=== PATIENT | female | born 1990 | race Caucasian/White ===

== ENCOUNTER → 2023-05-03 15:44 | Outpatient (CLI) | payer OTHER, SELFPAY | PROVIDERS: Visit Provider Nurse Practitioner Family | DX: N89.8 Other specified noninflammatory disorders of vagina (principal); R30.0 Dysuria | CPT/HCPCS: 87086; 87210 ==

== ENCOUNTER → 2023-09-06 07:52 | Outpatient (CLI) | payer OTHER, SELFPAY ==
[2023-09-06 09:03] LABS: Add Manual Diff / Slide Review NO; Basophils Absolute Auto 0 /uL (0-100); Basophils Percent Auto 0.7 % (0-2); Eosinophils Absolute Auto 200 /uL (0-450); Eosinophils Percent Auto 3.9 % (2-4); Hematocrit 36.7 % (36-46); Hemoglobin 12.4 g/dL (12.0-16.0); Lymphocytes Absolute Auto 1900 /uL (1100-4500); Lymphocytes Percent Auto 37.3 % (25-40); Mean Corpuscular HGB Conc 33.8 % (30-36); Mean Corpuscular Hemoglobin 31.9 PG (26-34); Mean Corpuscular Volume 94.5 fL (80-100); Monocytes Absolute Auto 500 /uL (0-900); Monocytes Percent Auto 9.5 % (3-14); Neutrophils Absolute Auto 2500 /uL (1500-7000); Neutrophils Percent Auto 48.6 % (50-75); Platelet Count 258 X10^3/uL (150-400); Red Blood Cell Count 3.89 X10^6/uL (4.0-5.2); Red Cell Distribution Width 13.4 % (11.6-14.8); White Blood Cell Count 5.2 X10^3/uL (4.5-11.0)
[2023-09-06 09:12] LABS: Hemoglobin A1C% w Est Avg Glu 5.5 % (4.0-6.0)
[2023-09-06 09:54] LABS: Alanine Aminotransferase 14 IU/L (<35); Albumin 4.4 g/dL (3.5-5.0); Albumin Globulin Ratio 1.3 (1.0-2.8); Alkaline Phosphatase 54 U/L (38-126); Aspartate Aminotransferase 24 IU/L (14-36); BUN Creatinine Ratio 18.7 (6-22); Bilirubin Total 0.6 mg/dL (0.2-1.3); Blood Urea Nitrogen 14 mg/dL (7-17); Calcium 9.2 mg/dL (8.4-10.2); Carbon Dioxide 28 mmol/L (22-32); Chloride 101 mmol/L (98-107); Estimated Glomerular Filt Rate > 60 mL/min (>60); Globulin 3.4 g/dL (1.7-4.1); Glucose 112 mg/dL (70-100); HEMOLYSIS < 15 (0-50); Potassium 4.1 mmol/L (3.4-5.1); Sodium 137 mmol/L (137-145); Total Protein 7.8 g/dL (6.3-8.2)
[2023-09-06 10:12] LABS: Free T3, Triiodothyronine Free 3.63 pg/mL (2.77-5.27); Free T4, Direct Thyroxine 0.79 ng/dL (0.78-2.19)
[2023-09-06 10:25] LABS: Thyroid Stimulating Hormone 1.76 uIU/mL (0.47-4.68)
[2023-09-06 17:25] LABS: HIV 1 & 2 Ab/Ag 4th Gen Combo NEGATIVE (NEGATIVE); Hep C Virus Ab w/Reflex Quant NEGATIVE s/c (NEGATIVE)
[2023-09-07 22:54] LABS: Thyroid Peroxidase Antibodies 457 IU/mL (0-34)
== END ==
PROVIDERS: PCP Family Medicine; Referring Provider Family Medicine; Visit Provider Family Medicine
DX: R76.8 Other specified abnormal immunological findings in serum (principal); R55 Syncope and collapse; Z13.29 Encounter for screening for other suspected endocrine disorder; R53.83 Other fatigue
CPT/HCPCS: 36415; 80053; 83036; 84439; 84443; 84481; 85025; 86376; 86803; 87389

== ENCOUNTER → 2023-11-29 15:55 | Outpatient (CLI) | payer OTHER, SELFPAY | PROVIDERS: PCP Family Medicine; Referring Provider Family Medicine; Visit Provider Family Medicine | DX: R55 Syncope and collapse (principal); R07.89 Other chest pain | CPT/HCPCS: 93005 ==

== ENCOUNTER → 2023-12-12 07:55 | Outpatient (CLI) | payer OTHER, SELFPAY | LOC: CAR 07:56 | PROVIDERS: PCP Family Medicine; Referring Provider Family Medicine; Visit Provider Family Medicine | DX: R07.9 Chest pain, unspecified (principal); R06.02 Shortness of breath; R42 Dizziness and giddiness | CPT/HCPCS: 93246 ==

== ENCOUNTER 2024-01-19 12:02 | Emergency (ER) | payer OTHER, SELFPAY ==
[2024-01-19 12:07] VITALS: BP 116/65; PULSE 74; RESP 16; TEMP 37.2; O2SAT 100; BMI 22.6
--- NOTE | 2024-01-19 12:19 | DI.US.S_ITS ---
PROCEDURE: US PELVIC COMPLETE INDICATIONS: POSITIVE HCG; PAIN TECHNIQUE: Real-time scanning was performed of the pelvic organs, with image documentation. Additional endovaginal scanning was necessary due to incomplete visualization of the adnexal and endometrial structures by transabdominal scanning. COMPARISON: None. FINDINGS: Uterus: Uterus is anteverted and normal in size at 7.8 x 3.6 x 4.7 cm. The myometrium is homogeneous. The endometrium measures 8.5 mm combined thickness. No evidence of intrauterine . Ovaries: The right ovary measures 3.9 x 3.3 x 32.2 cm, with a calculated ovarian volume of 14.5 mL. There is a complex avascular cyst measuring 1.9 x 2.6 x 1.4 cm. The left ovary measures 1.5 x 1.9 x 1.5 cm, with a calculated ovarian volume of 2.1 cc. Less than 12 follicles can be seen in each ovary. Immediate adjacent to the left ovary there is a 4.4 x 3.3 x 2.7 cm solid heterogeneous mass. No vascularity is identified. Other: 28 cc free fluid in the pelvis with internal echogenicities. IMPRESSION: No intrauterine . Left adnexal heterogeneous avascular mass combined with pelvic free-fluid raises concern for ectopic . Dr. Pham call discussed the above findings with Dr. Joseph at 12:55 p.m. [place] time We strive to produce accurate, complete, and clear reports of imaging services. To assist us in improving patient care, this report was composed using standard report templates and voice recognition software. Therefore, it may contain abnormal punctuation, insertions and/or omissions. Occasional wrong-word or sound-alike substitutions may occur. Though we review the report and make efforts to correct it, we do recommend that the report be read carefully in proper context to recognize any text inaccuracies. Dictated by: Abdi Pham M.D. on 01/19/2024 at 12:47 Approved by: Abdi Pham M.D. on 01/19/2024 at 12:56
--- NOTE | 2024-01-19 12:28 | PC.NURSE ---
SENIOR RECRUITMENT CONSULTANT Note: US Records requested from [facility] @ 1225
--- NOTE | 2024-01-19 12:48 | ED.PREGNANCY ---
HPI - General Chief complaint: OB/Uterine Contractions Stated complaint: abnormal labwork Time Seen by Provider: 01/19/24 12:19 Source: patient Mode of arrival: Ambulatory History of Present Illness HPI Narrative: 33-year-old female at approximately 5wks gestation presents for repeat laboratory work. Patient states that she was in the process of weaning her child and does not have normal menstrual periods. She had a positive home test at the beginning of this month. She was seen at an outside OBGYN clinic where her HCG was monitored, and appeared to decrease from 558 to 543. Patient states that on she had an ultrasound at the outside clinic that showed no IUP but a mass seen by the left ovary. Ectopic could not be ruled out and they recommended close follow up. Patient reports persistent deep left-sided pain that is worse when she is anup. States that she still has some residual pinkish tinge when she wipes but no dark bleeding. She was blood type A positive from previous pregnancies. Related Data Previous Rx's Medication Instructions Recorded albuterol sulfate 90 mcg/actuation 2 puff inhalation Q6H PRN 11/29/23 aerosol inhaler shortness of breath or wheezing #6.7 grams Allergies Allergy/AdvReac Type Severity Reaction Status Date / Time clavulanic acid Allergy Mild Swelling Verified 01/19/24 12:07 [From Augmentin] of Lip/Tongue/Throat Sulfa (Sulfonamide AdvReac Mild Hives Verified 01/19/24 12:07 Antibiotics) Review of Systems Review of Systems Narrative: Negative except as noted above Exam Initial Vital Signs Initial Vital Signs: Vital Signs Temperature 98.9 F 01/19/24 12:07 Pulse Rate 74 01/19/24 12:07 Respiratory Rate 16 01/19/24 12:07 Blood Pressure 116/65 01/19/24 12:07 Pulse Oximetry 100 01/19/24 12:07 Oxygen Delivery Method Room Air 01/19/24 12:07 Const: Awake, alert, no acute distress, nontoxic appearing Cardiac: regular rate, regular rhythm RESP: unlabored, clear bilaterally, no wheezing GI: Soft, nontender, nondistended, no rebound, no guarding MSK: Atraumatic, full range of motion, pulses equal Skin: Warm, Dry, intact, no rashes Neuro: AO x3, CN II-XII grossly intact, moves all extremities Course Orders Ordered: ED Orders 01/19/24 12:19 US pelvic complete Stat 01/19/24 12:34 ABO RH Type Stat Complete Blood Count AUTO DIFF Stat Comprehensive Metabolic Panel Stat HCG Quantitative /Beta subunit Stat Vital Signs Vital signs: Vital Signs - 8 hr 01/19/24 12:07 01/19/24 13:19 01/19/24 13:30 Temperature 98.9 F Pulse Rate 74 71 70 Respiratory Rate 16 Blood Pressure 116/65 Pulse Oximetry 100 100 99 Oxygen Delivery Method Room Air Room Air 01/19/24 15:07 Temperature Pulse Rate 81 Respiratory Rate 16 Blood Pressure 109/71 Pulse Oximetry 99 Oxygen Delivery Method Room Air MDM - OB/Uterine Contractions Differential Diagnosis Differential diagnosis: Likely normal delivery at term, hemorrhage and -induced hypertension Lab Data 01/19/24 12:34 01/19/24 12:34 Labs: Lab Results 01/19/24 Range/Units 12:34 WBC 6.0 (4.5-11.0) X10^3/uL RBC 3.51 L (4.0-5.2) X10^6/uL Hgb 11.4 L (12.0-16.0) g/dL Hct 33.3 L (36-46) % MCV 94.9 (80-100) fL MCH 32.5 (26-34) PG MCHC 34.2 (30-36) % RDW 13.5 (11.6-14.8) % Plt Count 275 (150-400) X10^3/uL Neut % (Auto) 52.7 (50-75) % Lymph % (Auto) 34.7 (25-40) % [place] % (Auto) 9.7 (3-14) % Eos % (Auto) 2.1 (2-4) % Baso % (Auto) 0.8 (0-2) % Neut # (Auto) 3200 (8271-3596) /uL Lymph # (Auto) 2100 (9893-4623) /uL [place] # (Auto) 600 (0-900) /uL Eos # (Auto) 100 (0-450) /uL Baso # (Auto) 0 (0-100) /uL Sodium 138 (137-145) mmol/L Potassium 4.2 (3.4-5.1) mmol/L Chloride 106 (98-107) mmol/L Carbon Dioxide 29 (22-32) mmol/L BUN 9 (7-17) mg/dL Creatinine 0.55 (0.52-1.04) mg/dL Estimated GFR > 60 (>60) mL/min BUN/Creatinine Ratio 16.4 (6-22) Glucose 98 (70-100) mg/dL Calcium 9.0 (8.4-10.2) mg/dL Total Bilirubin 0.7 (0.2-1.3) mg/dL AST 22 (14-36) IU/L ALT 13 (<35) IU/L Alkaline Phosphatase 50 (38-126) U/L Total Protein 8.1 (6.3-8.2) g/dL Albumin 4.5 (3.5-5.0) g/dL Globulin 3.6 (1.7-4.1) g/dL Albumin/Globulin Ratio 1.3 (1.0-2.8) HCG, Quant 221.6 mIU/mL Blood Type A Positive Urine Dip Bedside Urine Glucose Negative Bedside Urine Bilirubin - Negative Bedside Urine Ketone - Negative Urine Specific [place] 1.010 Bedside Urine Occult Blood - Negative Bedside Urine pH 7.0 Bedside Urine Protein - Negative Bedside Urine Urobilinogen - Negative Bedside Urine Nitrite - Negative Bedside Urine Leukocytes - Negative Esterase Imaging Data US - [facility] [employer] TEACHER: Radiologist's Impression: PROCEDURE: US PELVIC COMPLETE INDICATIONS: POSITIVE HCG; PAIN TECHNIQUE: Real-time scanning was performed of the pelvic organs, with image documentation. Additional endovaginal scanning was necessary due to incomplete visualization of the adnexal and endometrial structures by transabdominal scanning. COMPARISON: None. FINDINGS: Uterus: Uterus is anteverted and normal in size at 7.8 x 3.6 x 4.7 cm. The myometrium is homogeneous. The endometrium measures 8.5 mm combined thickness. No evidence of intrauterine . Ovaries: The right ovary measures 3.9 x 3.3 x 32.2 cm, with a calculated ovarian volume of 14.5 mL. There is a complex avascular cyst measuring 1.9 x 2.6 x 1.4 cm. The left ovary measures 1.5 x 1.9 x 1.5 cm, with a calculated ovarian volume of 2.1 cc. Less than 12 follicles can be seen in each ovary. Immediate adjacent to the left ovary there is a 4.4 x 3.3 x 2.7 cm solid heterogeneous mass. No vascularity is identified. Other: 28 cc free fluid in the pelvis with internal echogenicities. IMPRESSION: No intrauterine . Left adnexal heterogeneous avascular mass combined with pelvic free-fluid raises concern for ectopic . Dr. Pham call discussed the above findings with Dr. Joseph at 12:55 p.m. [place] time We strive to produce accurate, complete, and clear reports of imaging services. To assist us in improving patient care, this report was composed using standard report templates and voice recognition software. Therefore, it may contain abnormal punctuation, insertions and/or omissions. Occasional wrong-word or sound-alike substitutions may occur. Though we review the report and make efforts to correct it, we do recommend that the report be read carefully in proper context to recognize any text inaccuracies. Dictated by: Abdi Pham M.D. on 01/19/2024 at 12:47 Approved by: Abdi Pham M.D. on 01/19/2024 at 12:56 MDM Narrative Medical decision making narrative: Well-appearing patient with abnormal laboratory work and abnormal outside imaging this concerning for ectopic . Abdomen soft, patient in no acute distress. Repeat hCG and imaging ordered here. HCG quant 221, decreased even further from previous value of 543. Patient was able to show the previous ultrasound report on her phone that showed a ?left-sided heterogenous mass with peripheral vascularity adjacent to the left ovary measuring 3.1 x 3.2 x 2.2 cm. A trace of anechoic fluid around the mass is seen?. Today ultrasound report shows that the mass adjacent to the left ovary is even larger in size with 28 cc of free fluid in the pelvis. Discussed lab and ultrasound findings with on-call OBGYN Dr. العراقي, who states that this is likely an ectopic in the process of resolving. Dr. العراقي assessed the patient in person. Since she is still she was not a candidate for methotrexate. Option to take patient to surgery versus watchful waiting discussed with patient. Patient discussed options with her and elected to go home with watchful waiting. She will follow up on Sunday with OBGYN. ED return precautions discussed at bedside. Patient expressed understanding of the plan and is in agreement at this time. All questions answered at the time of discharge. Discharge Plan Departure Patient Disposition: Home Clinical Impression: Ectopic Qualifiers: Location of ectopic : other location Intrauterine status: without intrauterine Qualified Code(s): O00.80 - Other ectopic without intrauterine Instructions: DI for Ectopic Activity Restrictions/Additional Instructions: After discussing with OBGYN you elected to follow watchful waiting. If you notice increasing abdominal pain, worsening bleeding, or any other concerning symptoms please come back to the emergency department. Otherwise follow up with OBGYN as previously discussed with Dr. اعلراقي Prescriptions: No Action albuterol sulfate 90 mcg/actuation HFA aerosol inhaler 2 puff inhalation Q6H PRN (Reason: shortness of breath or wheezing) Qty: 6.7 0RF Referrals: Jasvir Quiroz MD [Primary Care Provider] - Cynthia العراقي DO [Physician] - Stand Alone Forms: Patient Portal/API
[2024-01-19 13:01] LABS: Add Manual Diff / Slide Review NO; Basophils Absolute Auto 0 /uL (0-100); Basophils Percent Auto 0.8 % (0-2); Eosinophils Absolute Auto 100 /uL (0-450); Eosinophils Percent Auto 2.1 % (2-4); Hematocrit 33.3 % (36-46); Hemoglobin 11.4 g/dL (12.0-16.0); Lymphocytes Absolute Auto 2100 /uL (1100-4500); Lymphocytes Percent Auto 34.7 % (25-40); Mean Corpuscular HGB Conc 34.2 % (30-36); Mean Corpuscular Hemoglobin 32.5 PG (26-34); Mean Corpuscular Volume 94.9 fL (80-100); Monocytes Absolute Auto 600 /uL (0-900); Monocytes Percent Auto 9.7 % (3-14); Neutrophils Absolute Auto 3200 /uL (1500-7000); Neutrophils Percent Auto 52.7 % (50-75); Platelet Count 275 X10^3/uL (150-400); Red Blood Cell Count 3.51 X10^6/uL (4.0-5.2); Red Cell Distribution Width 13.5 % (11.6-14.8)
[2024-01-19 13:04] LABS: Alanine Aminotransferase 13 IU/L (<35); Albumin 4.5 g/dL (3.5-5.0); Albumin Globulin Ratio 1.3 (1.0-2.8); Alkaline Phosphatase 50 U/L (38-126); Aspartate Aminotransferase 22 IU/L (14-36); BUN Creatinine Ratio 16.4 (6-22); Bilirubin Total 0.7 mg/dL (0.2-1.3); Blood Urea Nitrogen 9 mg/dL (7-17); Carbon Dioxide 29 mmol/L (22-32); Chloride 106 mmol/L (98-107); Estimated Glomerular Filt Rate > 60 mL/min (>60); Globulin 3.6 g/dL (1.7-4.1); Glucose 98 mg/dL (70-100); HEMOLYSIS < 15 (0-50); Potassium 4.2 mmol/L (3.4-5.1); Sodium 138 mmol/L (137-145); Total Protein 8.1 g/dL (6.3-8.2)
[2024-01-19 13:19] VITALS: PULSE 71; O2SAT 100
[2024-01-19 13:20] LABS: HCG Quantitative /Beta subunit 221.6 mIU/mL
[2024-01-19 13:30] VITALS: PULSE 70; O2SAT 99
[2024-01-19 15:07] VITALS: BP 109/71; PULSE 81; RESP 16; O2SAT 99
--- NOTE | 2024-01-19 15:08 | PM.CN ---
History of Present Illness Consult details Date Patient Seen: 01/19/24 Time Patient Seen: 14:21 Chief complaint: abnormal labwork Reason for consult: possible ectopic Requesting provider: Chel Joseph Narrative: 33yo F presented to the ER today for follow-up regarding possible ectopic . She states she has been followed by her primary OB in [place] over the last 1-2 weeks, and had noted a plateau in her hCG. She declined methotrexate in favor of monitoring. Her last hCG she reported as of 2 days ago was in the 500s. She denies abdominal pain or vaginal bleeding. Meds Home Medications and Allergies Home Medications Medication Instructions Recorded Confirmed Type albuterol sulfate 90 mcg/actuation 2 puff inhalation Q6H PRN 11/29/23 11/29/23 Rx aerosol inhaler shortness of breath or wheezing #6.7 grams Allergies Allergy/AdvReac Type Severity Reaction Status Date / Time clavulanic acid Allergy Mild Swelling Verified 01/19/24 12:07 [From Augmentin] of Lip/Tongue/Throat Sulfa (Sulfonamide AdvReac Mild Hives Verified 01/19/24 12:07 Antibiotics) Review of Systems Review of Systems ROS: Yes All systems reviewed with the patient and are negative except as otherwise documented Exam Vital Signs (past 8 hours): - 01/19/24 12:07 01/19/24 13:19 01/19/24 13:30 Temperature 98.9 F Pulse Rate 74 71 70 Respiratory Rate 16 Blood Pressure 116/65 Pulse Oximetry 100 100 99 Oxygen Delivery Method Room Air Room Air Oxygen Delivery Method Room Air Const General: healthy appearing, comfortable and No acute distress Resp Effort & Inspection: normal respiratory effort and able to speak in complete sentences GI Inspection: normal to inspection Palpation: soft, No guarding and No tender Other: no rebound tenderness Skin General: no rashes or lesions noted Psych Mood: congruent mood Affect: normal affect Objective Imaging US - abdomen: Radiologist's impression: FINDINGS: Uterus: Uterus is anteverted and normal in size at 7.8 x 3.6 x 4.7 cm. The myometrium is homogeneous. The endometrium measures 8.5 mm combined thickness. No evidence of intrauterine . Ovaries: The right ovary measures 3.9 x 3.3 x 32.2 cm, with a calculated ovarian volume of 14.5 mL. There is a complex avascular cyst measuring 1.9 x 2.6 x 1.4 cm. The left ovary measures 1.5 x 1.9 x 1.5 cm, with a calculated ovarian volume of 2.1 cc. Less than 12 follicles can be seen in each ovary. Immediate adjacent to the left ovary there is a 4.4 x 3.3 x 2.7 cm solid heterogeneous mass. No vascularity is identified. Other: 28 cc free fluid in the pelvis with internal echogenicities. IMPRESSION: No intrauterine . Left adnexal heterogeneous avascular mass combined with pelvic free-fluid raises concern for ectopic . Dr. Pham call discussed the above findings with Dr. Joseph at 12:55 p.m. [place] time We strive to produce accurate, complete, and clear reports of imaging services. To assist us in improving patient care, this report was composed using standard report templates and voice recognition software. Therefore, it may contain abnormal punctuation, insertions and/or omissions. Occasional wrong-word or sound-alike substitutions may occur. Though we review the report and make efforts to correct it, we do recommend that the report be read carefully in proper context to recognize any text inaccuracies. Dictated by: Abdi Pham M.D. on 01/19/2024 at 12:47 Approved by: Abdi Pham M.D. on 01/19/2024 at 12:56 Labs 01/19/24 12:34 01/19/24 12:34 Labs: Laboratory Results - last 24 hr 01/19/24 12:34 WBC 6.0 RBC 3.51 L Hgb 11.4 L Hct 33.3 L MCV 94.9 MCH 32.5 MCHC 34.2 RDW 13.5 Plt Count 275 Neut % (Auto) 52.7 Lymph % (Auto) 34.7 [place] % (Auto) 9.7 Eos % (Auto) 2.1 Baso % (Auto) 0.8 Neut # (Auto) 3200 Lymph # (Auto) 2100 [place] # (Auto) 600 Eos # (Auto) 100 Baso # (Auto) 0 Sodium 138 Potassium 4.2 Chloride 106 Carbon Dioxide 29 BUN 9 Creatinine 0.55 Estimated GFR > 60 BUN/Creatinine Ratio 16.4 Glucose 98 Calcium 9.0 Total Bilirubin 0.7 AST 22 ALT 13 Alkaline Phosphatase 50 Total Protein 8.1 Albumin 4.5 Globulin 3.6 Albumin/Globulin Ratio 1.3 HCG, Quant 221.6 Blood Type A Positive [facility] Medical History (Updated 01/19/24 @ 15:16 by Cynthia العراقي, ) History of chlamydia Tobacco & Substance Use Smoking Status: Never smoker Assessment & Plan Assessment and plan (1) Ectopic : Qualifiers: Intrauterine status: without intrauterine Location of ectopic : other location Qualified Code(s): O00.80 - Other ectopic without intrauterine Status: Acute Assessment & Plan narrative: 33yo F with 2 prior deliveries and no hx of ectopic , presented to ER today for ongoing monitoring of suspected ectopic . Per her results from her OB in [place], her hCG quant today is significantly down from 2 days ago. Per her US today, the mass is slightly larger than , however pt is asymptomatic with minimal free fluid noted on US today. I discussed management options with the patient at this point, to include continue close monitoring vs. proceeding with diagnostic laparoscopy with possible salpingectomy. We discussed the pros/cons of each, as well as risk with each. I don't feel she is a good candidate for methotrexate at this time, as she is still , and the hCG seems to be downtrending on it's own. We discussed that if the ectopic ruptures, that this can lead to life-threatening internal bleeding. After lengthy discussion, pt desires to proceed with monitoring at this time. -advised pt to follow-up on Sunday for repeat hCG quant; will follow-up after this is resulted -reviewed precautions and advised pt to return immediately to the ER if she starts to experience severe abdominal pain -all her questions were answered at this time Time Spent With Patient Time with patient: 30 to 49 minutes with 50% spent counseling/coordinating care
== END 2024-01-19 15:09 | disposition home or self-care (01) ==
PROVIDERS: Emergency Provider Emergency Medicine; PCP Family Medicine
DX: O00.80 Other ectopic pregnancy without intrauterine pregnancy (principal)
CPT/HCPCS: 36415; 76830; 76856; 80053; 81003; 84702; 85025; 86900; 86901; 99282; 99284

== ENCOUNTER → 2024-08-25 15:28 | Outpatient (CLI) | payer OTHER, SELFPAY ==
--- NOTE | 2024-08-25 15:29 | DI.US.S_ITS ---
PROCEDURE: US OB >= 14 WEEKS FETUS INDICATIONS: 20 WK ANATOMY SCAN OUTSIDE/PRIOR DATING DATA: Last menstrual period (LMP): 04/03/2024. LMP-based estimated date of delivery (MAHSA): 01/08/2025. First dating scan (date and location): Prior outside imaging not available. Estimated date of delivery (MAHSA) from first dating scan: None available The calculations are made using the clinical MAHSA of 01/08/2025. TECHNIQUE: Real-time scanning was performed of the fetus, with image documentation and biometric measurements. Endovaginal scanning: Not performed COMPARISON: None. FINDINGS: General: A single living intrauterine gestation is present. Presentation: Vertex. Placenta: Placental position is posterior , without previa. Amniotic fluid index: 13.1 cm, normal range is 5-24 cm. Single deepest vertical pocket is 4.2 cm. heart rate: 153 beats per minute. Maternal cervical canal: 4.4 cm long. Normal lower limit is 2.5 cm. biometrics: Biparietal diameter: 4.7 cm Head circumference: 17.8 cm Abdominal circumference: 15.6 cm Femur length: 3.3 cm Clinically estimated gestational age: 20 weeks, 4 days Composite gestational age from present scan: 20 weeks, 3 days Estimated weight and percentile: 363 g, 45th percentile Anatomic survey: Neuro: Ventricles are non-dilated at less than 10 mm. Cisterna magna is normal at 3-11 mm. Cerebellum is normal in size and morphology. Nuchal skin fold: Normal at less than 6 mm between 14-21 weeks gestational age. Face: Nose and lips, facial profile are normal. Spine: No evidence for spina bifida. Heart: 4-chambered heart is present, with normal ventricular outflow tracts. Diaphragm: Diaphragm is intact. Stomach: Left-sided stomach is present. Kidneys: No hydronephrosis. Normal is less than 5 mm in 2nd trimester, less than 7 mm in 3rd trimester. Cord: 3-vessel cord has orthotopic insertion. Bladder: Normal in size. Extremities: All 4 extremities identified. IMPRESSION: Single intrauterine gestation in vertex presentation with estimated gestational age of 20 weeks, 3 days based on biometry. Estimated gestational weight in 45th percentile. anatomic survey demonstrates no gross abnormality. Four chamber view the heart is suboptimally visualized. Recommend short interval follow up. Approved by: Maria Luisa Lanza M.D.,Ph.D. on 08/27/2024 at 10:20
== END ==
LOC: US 15:28
PROVIDERS: PCP Family Medicine; Referring Provider Specialist; Visit Provider Specialist
DX: Z3A.20 20 weeks gestation of pregnancy (principal); Z34.82 Encounter for supervision of other normal pregnancy, second trimester
CPT/HCPCS: 76811

== ENCOUNTER → 2024-09-05 10:30 | Outpatient (CLI) | payer OTHER, SELFPAY | PROVIDERS: PCP Family Medicine; Visit Provider Obstetrics & Gynecology | DX: Z34.82 Encounter for supervision of other normal pregnancy, second trimester (principal); R31.9 Hematuria, unspecified; Z3A.26 26 weeks gestation of pregnancy | CPT/HCPCS: 87086 ==

== ENCOUNTER → 2024-10-08 15:09 | Outpatient (CLI) | payer OTHER, SELFPAY ==
[2024-10-08 17:45] LABS: Hematocrit 31.6 % (36-46)
[2024-10-08 18:10] LABS: Glucose 73 mg/dL (70-100)
[2024-10-08 18:21] LABS: Follicle Stimulating Hormone < 0.66 mIU/mL
[2024-10-08 18:27] LABS: Free T4, Direct Thyroxine 0.65 ng/dL (0.78-2.19)
[2024-10-09 09:08] LABS: Thyroid Stimulating Hormone 0.528 uIU/mL (0.47-4.68)
[2024-10-10 07:36] LABS: Thyroid Peroxidase Antibodies 101 IU/mL (0-34)
[2024-10-10 14:38] LABS: Candida species Negative (Negative); Gardnerella vaginalis Negative (Negative); Trichomoas vaginalis Negative (Negative)
== END ==
PROVIDERS: PCP Family Medicine; Referring Provider Obstetrics & Gynecology; Visit Provider Obstetrics & Gynecology
DX: Z34.82 Encounter for supervision of other normal pregnancy, second trimester (principal); N89.8 Other specified noninflammatory disorders of vagina; R76.8 Other specified abnormal immunological findings in serum; Z3A.26 26 weeks gestation of pregnancy
CPT/HCPCS: 36415; 82947; 83001; 84439; 84443; 85014; 85018; 86376; 87480; 87510; 87660

== ENCOUNTER 2024-11-12 16:12 | Outpatient (CLI) | payer BC, SELFPAY ==
[2024-11-12 17:09] LABS: Add Manual Diff / Slide Review NO; Basophils Absolute Auto 0 /uL (0-100); Basophils Percent Auto 0.3 % (0-2); Eosinophils Absolute Auto 200 /uL (0-450); Eosinophils Percent Auto 2.1 % (2-4); Hematocrit 30.9 % (36-46); Hemoglobin 10.8 g/dL (12.0-16.0); Lymphocytes Absolute Auto 1600 /uL (1100-4500); Lymphocytes Percent Auto 20.8 % (25-40); Mean Corpuscular Hemoglobin 34.2 PG (26-34); Mean Corpuscular Volume 97.5 fL (80-100); Monocytes Absolute Auto 600 /uL (0-900); Monocytes Percent Auto 7.7 % (3-14); Neutrophils Absolute Auto 5300 /uL (1500-7000); Neutrophils Percent Auto 69.1 % (50-75); Platelet Count 215 X10^3/uL (150-400); Red Blood Cell Count 3.17 X10^6/uL (4.0-5.2); White Blood Cell Count 7.7 X10^3/uL (4.5-11.0)
[2024-11-12 17:17] LABS: Appearance Urine UA CLEAR; Bilirubin Urine UA NEGATIVE (NEGATIVE); Color Urine UA YELLOW; Glucose Urine UA NEGATIVE (Negative); Ketones Urine UA NEGATIVE (NEGATIVE); Leukocyte Esterase Urine UA NEGATIVE (NEGATIVE); Nitrite Urine UA NEGATIVE (Negative); Occult Blood Urine UA NEGATIVE (Negative); Protein Urine UA NEGATIVE (Negative); Specific Gravity Urine UA <=1.005 (1.000-1.035); Urobilinogen Urine UA 0.2 E.U./dL (0.2)
[2024-11-12 17:20] LABS: Alanine Aminotransferase 18 IU/L (<35); Albumin 3.7 g/dL (3.5-5.0); Albumin Globulin Ratio 1.2 (1.0-2.8); Alkaline Phosphatase 66 U/L (38-126); Aspartate Aminotransferase 27 IU/L (14-36); BUN Creatinine Ratio 16.7 (6-22); Bilirubin Total 0.2 mg/dL (0.2-1.3); Blood Urea Nitrogen 10 mg/dL (7-17); Calcium 8.3 mg/dL (8.4-10.2); Carbon Dioxide 22 mmol/L (22-32); Chloride 104 mmol/L (98-107); Estimated Glomerular Filt Rate > 60 mL/min (>60); Globulin 3.2 g/dL (1.7-4.1); Glucose 92 mg/dL (70-100); HEMOLYSIS < 15 (0-50); Potassium 3.4 mmol/L (3.4-5.1); Sodium 130 mmol/L (137-145); Total Protein 6.9 g/dL (6.3-8.2)
[2024-11-12 17:43] LABS: Bacteria Urine Few (2-10); Culture Indicated Urine Cult Not Indicated; RBC Urine 0-1/HPF (0-5/HPF); Squamous Epithelial Cell Urine 1-5 /HPF (0-5/HPF); Urine Volume 10mL (spun); WBC Urine 0-1/HPF (0-5/HPF)
[2024-11-12 18:08] LABS: Protein (Total) Urine Random 14 mg/dL (0-12); Protein Creatinine Ratio Urine 0.59 GRAM/24H
--- NOTE | 2024-11-12 18:34 | P.TNLD_ITS ---
Visit Information Visit Information Date of evaluation: 11/12/24 Primary OB Provider: Irene Nye On-call OB Provider: Jasvir Quiroz Comments/Additional reasons for admission: Visual changes consistent with tunnel vision while driving earlier today, intermittent dizziness. Presents to L&D due to concern for preeclampsia. Endorses normal movement. Denies vaginal bleeding, leakage of fluid, abdominal pain, contractions. No new headache, shortness of breath, right upper quadrant pain, peripheral edema/swelling. Antepartum course notable for history of thyroiditis (not currently on medication). [facility] Medical History (Updated 11/12/24 @ 18:39 by Jasvir Quiroz MD) History of chlamydia Surgical History (Updated 07/25/24 @ 14:09 by Delmy Cruz RN) [place] teeth extracted Family History (Updated 07/25/24 @ 14:13 by Delmy Cruz RN) Father Skin cancer Prostate cancer Chronic sinusitis Uncle Melanoma Grandfather Prostate cancer Congestive heart failure Mother Breast cancer Aunt Breast cancer Social History marital status: number of children: 2 household members: spouse and children lives independently: Yes caregiver/support person: Yes housing: house pets and animals: No education level: college occupational status: employed current occupational exposures/hazards: No special brianne needs: No travel history: recent seatbelt use: always helmet use: Yes water heater temp set < 120 deg: Yes working smoke detector in home: Yes fire extinguisher in home: Yes carbon monox detector in home: Yes firearms in home: No do you feel safe at home: Yes Smoking Status: Never smoker second hand exposure: No alcohol intake: former substance use type: does not use during the past year weight has: remained stable well-balanced diet: daily or most days daily servings fruits/ve or more times/day caffeine: Yes (single shot espresso daily) Type(s) of exercise: walking Review of Systems Review of Systems ROS: Yes All systems reviewed with the patient and are negative except as otherwise documented Objective Labs 11/12/24 16:54 11/12/24 16:54 Labs: Laboratory Results - last 24 hr 11/12/24 11/12/24 16:30 16:54 WBC 7.7 RBC 3.17 L Hgb 10.8 L Hct 30.9 L MCV 97.5 MCH 34.2 H MCHC 35.0 RDW 13.0 Plt Count 215 Neut % (Auto) 69.1 Lymph % (Auto) 20.8 L [place] % (Auto) 7.7 Eos % (Auto) 2.1 Baso % (Auto) 0.3 Neut # (Auto) 5300 Lymph # (Auto) 1600 [place] # (Auto) 600 Eos # (Auto) 200 Baso # (Auto) 0 Sodium 130 L Potassium 3.4 Chloride 104 Carbon Dioxide 22 BUN 10 Creatinine 0.60 Estimated GFR > 60 BUN/Creatinine Ratio 16.7 Glucose 92 Calcium 8.3 L Total Bilirubin 0.2 AST 27 ALT 18 Alkaline Phosphatase 66 Total Protein 6.9 Albumin 3.7 Globulin 3.2 Albumin/Globulin Ratio 1.2 Urine Color Yellow Urine Appearance Clear Urine pH 7.0 Ur Specific [place] <=1.005 Urine Protein Negative Urine Glucose (UA) Negative Urine Ketones Negative Urine Occult Blood Negative Urine Nitrate Negative Urine Bilirubin Negative Urine Urobilinogen 0.2 Ur Leukocyte Esterase Negative Urine RBC 0-1/hpf Urine WBC 0-1/hpf Ur Squamous Epith Cells 1-5 /hpf Urine Bacteria Few (2-10) H Ur Culture Indicated? Cult not indicated Vol Urine Centrifuged 10ml (spun) U Random Total Protein 14 H Urine Creatinine 23.70 Protein/Creatinin Ratio 0.59 Evaluation Evaluation Baseline heart rate: 130 Variability: Moderate (11-25) monitor accelerations: Present Monitor Decelerations: Absent Category of Tracing: Reactive Status: Category l Diagnosis, Plan/Disposition Final Diagnosis (1) 31 weeks gestation of : Status: Acute (2) Visual changes: Status: Acute (3) Dizziness: Status: Acute Plan/Disposition Plan: 34-year-old at [place] 31+3 weeks here for temporary visual changes and intermittent dizziness. Visual changes/tunnel vision resolved on arrival to L&D. Later reported to nursing that she had not eaten since breakfast this morning. PIH labs notable for elevated urine protein/creatinine ratio 0.59, however patient normotensive throughout on chart review as well as during triage evaluation. Platelets, creatinine, LFTs within normal limits. Hemoglobin 10.8, glucose 92. Has previously reported dizziness with position changes on chart review. Visual changes potentially related to anemia/orthostatic hypotension and/or low blood sugar. Patient discharged home, advised follow-up with Dr. Nye next week as scheduled. OB Disposition: home
== END 2024-11-12 17:55 | disposition home or self-care (01) ==
LOC: OB 11-13 06:06
PROVIDERS: PCP Family Medicine; Referring Provider Family Medicine; Visit Provider Family Medicine
DX: O26.893 Other specified pregnancy related conditions, third trimester (principal); Z3A.31 31 weeks gestation of pregnancy; H53.9 Unspecified visual disturbance; R42 Dizziness and giddiness; Z86.39 Personal history of other endocrine, nutritional and metabolic disease
CPT/HCPCS: 59025; 80053; 81001; 82570; 84156; 85025; G0378; G0379

== ENCOUNTER → 2024-12-15 12:11 | Outpatient (CLI) | payer BC, SELFPAY ==
[2024-12-16 08:25] LABS: Strep Grp B PCR NEG for Grp B Strep
== END ==
PROVIDERS: PCP Family Medicine; Visit Provider Family Medicine
DX: Z34.80 Encounter for supervision of other normal pregnancy, unspecified trimester (principal); Z36.85 Encounter for antenatal screening for Streptococcus B
CPT/HCPCS: 87210; 87653

== ENCOUNTER 2025-01-13 09:22 | Inpatient (IN) | payer BC, SELFPAY ==
[2025-01-13 10:12] LABS: Add Manual Diff / Slide Review NO; Basophils Absolute Auto 0 /uL (0-100); Basophils Percent Auto 0.4 % (0-2); Eosinophils Absolute Auto 100 /uL (0-450); Eosinophils Percent Auto 0.5 % (2-4); Hemoglobin 11.5 g/dL (12.0-16.0); Lymphocytes Absolute Auto 1800 /uL (1100-4500); Lymphocytes Percent Auto 15.7 % (25-40); Mean Corpuscular HGB Conc 34.8 % (30-36); Mean Corpuscular Hemoglobin 33.7 PG (26-34); Mean Corpuscular Volume 96.6 fL (80-100); Monocytes Absolute Auto 600 /uL (0-900); Monocytes Percent Auto 5.1 % (3-14); Neutrophils Absolute Auto 8800 /uL (1500-7000); Neutrophils Percent Auto 78.3 % (50-75); Platelet Count 241 X10^3/uL (150-400); Red Blood Cell Count 3.41 X10^6/uL (4.0-5.2); White Blood Cell Count 11.3 X10^3/uL (4.5-11.0)
--- NOTE | 2025-01-13 10:41 | PM.OBPRVD ---
Labor & Delivery Delivery date: 01/13/25 Delivery Time: 10:15 Cervical ripening method: none Induction method: none Delivery monitor: external FHT (intermittent monitoring) Route of delivery: L&D Laceration Description: Perineal - 1st Degree Quantitative Blood Loss: 200 Anesthesia Type: None Complications: none Narrative: 34 yo at 40w2d presented wtih REILLY and was admitted to Labor and Delivery. The patient progressed quickly and SROM'ed at 10:04 wtih meconium. She declined pain control options and an IV. She continued to progress and reached full cervical dilation then began pushing and delivered a viable female infant with APGARs 9/10 at 10:15 while sitting on her knees. Infant was delivered out of direct OA with a right sided nuchal arm. She cried immediately after delivery and was placed on maternal abdoemn. The cord was cut and clamped after it stopped pulsating, approximately 7 minutes after delivery. The placenta delivered with gentle cord traction, and appeared complete at 10:25. The perineum and vagina were inspected with a shallow 1st degree perineal laceration which was hemostatic and not repaired. Pt declines pitocin after delivery. Will continue with frequent fundal massage per protocol. Needle and sponge counts were correct.? The vagina was inspected and no items were left in situ. PREPROCEDURE DIAGNOSIS: Intrauterine at 40w2d GBS negative RH positive POSTPROCEDURE DIAGNOSIS: Intrauterine at 40w2d, delivered Same as preprocedure Plan for aftercare: Routine care
--- NOTE | 2025-01-13 10:57 | P.HPOB_ITS ---
OB HPI Date/Time Date of admission: 01/13/25 Date Patient Seen: 01/13/25 Time Patient Seen: 10:00 History of Present Condition Chief complaint: OBS OF LABOR MAHSA Calculator 2 Estimated Delivery Date Method Current WG Current Estimate 01/11/25 Ultrasound #1 40w 2d Other Estimates 01/08/25 LMP (Certain) 40w 5d : 4 Para: 2 Narrative: 34 yo at 40w2d presented with REILLY. COntractions started this AM at 4am and have been getting stronger and more frequent. She is feeling baby move. complicated by thyroiditis not on medication with nml thyroid levels each trimester. care: good care Dating criteria OB: LMP confirmed by 1st trimester US Ultrasounds: normal 1st trimester US (outside records at [facility] ) and normal mid trimester US ([facility] anatomy US ) Obstetrical complications: none Medical complications OB: none Preadmission Labs Last OB Lab Results: 2 Blood Type A Positive 01/19/24 12:34 Antibody Screen Pending 01/13/25 10:01 Hct 33.0 % (36-46) L 01/13/25 10:01 Hgb 11.5 g/dL (12.0-16.0) L 01/13/25 10:01 Hepatitis C Antibody Negative s/c (NEGATIVE) 09/06/23 08:09 Hemoglobin A1c 5.5 % (4.0-6.0) 09/06/23 08:09 Group B Strep (PCR) Neg for grp b strep 12/15/24 12:20 Glucose Tolerance Testing: Fasting (declined GTT, checked glucoses ) -: Chlamydia screen: negative (negative outside hospital 07/10/24), Gonorrhea screen: negative (negative outside hospital 07/10/24) and Urine: negative (negative outside hospital 07/10/24) -: PAP smear: Normal (outside records 07/10/24) External Labs Blood type OB HPI: A (+) positive -: Antibody screen: negative (negative outside hospital 07/10/24), HBsAG: negative (negative outside hospital 07/10/24), HIV: negative (negative outside hospital 07/10/24), RPR/VDLR: negative (negative outside hospital 07/10/24), Chlamydia screen: negative (negative outside hospital 07/10/24), Gonorrhea screen: negative (negative outside hospital 07/10/24), Cystic fibrosis screen: unknown, GBS status: negative and Urine: negative (negative outside hospital 07/10/24) -: Rubella: immune (negative outside hospital 07/10/24) HCAB: negative (negative outside hospital 07/15/24) Prior (ies) Past Pregnancies Del. Date GA/Weeks Labor Lgth Wt Sex Route Outcome Anesthesia Place Delv Breastfeed Preg Comp Name 09/12/20 40 9 7 lb 8 oz Female vaginal live - full term ep idural [place] ~1 year none [place] 09/09/22 41.5 11 Female vaginal live - full term epidu ral [place] 16 months post-dates induction other [place] 01/21/24 ~5 ectopic Delivery Date: 09/09/22 Last Updated by: Delmy Cruz RN postpartum thyroiditis Delivery Date: 01/21/24 Last Updated by: Delmy Cruz RN Resolved spontaneously without treatment. Evaluation Evaluation Baseline heart rate: 140 Variability: Moderate (11-25) monitor accelerations: Present Monitor Decelerations: Absent Contraction Frequency (minutes): 4 Category of Tracing: Reactive Status: Category l Dilation (cm): 9 Effacement (%): 100 Dilation: >/=5 cm Effacement: >/=80% station: 0 PFSH Medical History (Updated 11/12/24 @ 18:39 by Jasvir Quiroz MD) History of chlamydia Surgical History (Updated 07/25/24 @ 14:09 by Delmy Cruz RN) [place] teeth extracted Family History (Updated 07/25/24 @ 14:13 by Delmy Cruz RN) Father Skin cancer Prostate cancer Chronic sinusitis Uncle Melanoma Grandfather Prostate cancer Congestive heart failure Mother Breast cancer Aunt Breast cancer Social History marital status: number of children: 2 household members: spouse and children lives independently: Yes caregiver/support person: Yes housing: house pets and animals: No education level: college occupational status: employed current occupational exposures/hazards: No special brianne needs: No travel history: recent seatbelt use: always helmet use: Yes water heater temp set < 120 deg: Yes working smoke detector in home: Yes fire extinguisher in home: Yes carbon monox detector in home: Yes firearms in home: No do you feel safe at home: Yes Smoking Status: Never smoker second hand exposure: No alcohol intake: former substance use type: does not use during the past year weight has: remained stable well-balanced diet: daily or most days daily servings fruits/ve or more times/day caffeine: Yes (single shot espresso daily) Type(s) of exercise: walking Meds Home Medications and Allergies Home Medications Medication Instructions Recorded Confirmed Type albuterol sulfate 90 mcg/actuation 2 puff inhalation Q6H PRN 11/29/23 01/12/25 Rx aerosol inhaler shortness of breath or wheezing #6.7 grams calcium carbonate (Tums) 200 mg PO TID PRN 07/25/24 01/12/25 History vitamin-ferrous sulfate tab PO 07/25/24 01/12/25 History 27 mg iron-folic acid 0.8 mg tablet Allergies Allergy/AdvReac Type Severity Reaction Status Date / Time hazelnut Allergy Severe Swelling Verified 01/12/25 15:25 of Lip/Tongue/Throat kiwi Allergy Intermediate ITCHING Verified 01/12/25 15:25 Latex, Natural Rubber Allergy Intermediate Rash Verified 01/12/25 15:25 clavulanic acid Allergy Mild Swelling Verified 01/12/25 15:25 [From Augmentin] of Lip/Tongue/Throat Sulfa (Sulfonamide AdvReac Mild Hives Verified 01/12/25 15:25 Antibiotics) Review of Systems Review of Systems Narrative: + contractions - vag bleeding + movement OB Exam Vital signs Blood Pressure: 136/75 Pulse Rate: 69 Temperature: 36.3 F Narrative Exam Narrative: Gen: breathing through contractions ABd: gravid SVE: 10/100/0, mec fluids at os MSK: scant edema, symmetric Objective Labs 01/13/25 10:01 Labs: Laboratory Results - last 24 hr 01/13/25 10:01 WBC 11.3 H RBC 3.41 L Hgb 11.5 L Hct 33.0 L MCV 96.6 MCH 33.7 MCHC 34.8 RDW 13.0 Plt Count 241 Neut % (Auto) 78.3 H Lymph % (Auto) 15.7 L [place] % (Auto) 5.1 Eos % (Auto) 0.5 L Baso % (Auto) 0.4 Neut # (Auto) 8800 H Lymph # (Auto) 1800 [place] # (Auto) 600 Eos # (Auto) 100 Baso # (Auto) 0 Assessment and Plan Assessment and Plan Assessment and Plan narrative: 34 yo at 40w2d presented with REILLY # Admit to LD - TS, CBC - pt declines IV, aware of hemorrhage risks - Pt declines epidural - Pt declines continuous monitoring, ok with intermittent. FHT on strip Cat I - PPH meds in room, will have IM pit available Time-Based Coding :: [TOTAL MINUTES] spent with patient and on the chart (including review of chart, obtaining history, exam, reviewing outside data, placing orders, documenting exam and treatment plan, and counseling patient) on [DATE].
[2025-01-13 11:14] VITALS: BP 136/75; PULSE 69; TEMP 2.4; TEMP 36.3
[2025-01-14] MEDS: WITCH HAZEL/GLYCERIN PADS 1 EACH TOP (02:16)
[2025-01-14] MEDS: DERMOPLAST SPRAY 20% 60 ML 1 SPRAY TOP (02:17)
--- NOTE | 2025-01-14 10:43 | P.DS_ITS ---
Discharge Providers Provider Date of admission: 01/13/25 09:22 Discharge Date: 01/14/25 Primary care physician: Jasvir Quiroz MD Consults: 01/14/25 11:52 Consult to Medical Billing Representative Routine Comment: Discharge provider: Irene Nye MD Summary Hospital Course Date Patient Seen: 01/14/25 Time Patient Seen: 08:30 Hospital Course: 34 yo at 40w2d presented wtih REILLY and was admitted to Labor and Delivery. The patient progressed quickly and SROM'ed at 10:04 wtih meconium. She declined pain control options and an IV. She continued to progress and reached full cervical dilation then began pushing and delivered a viable female infant with APGARs 9/10 at 10:15 while sitting on her knees. Infant was delivered out of direct OA with a right sided nuchal arm. She cried immediately after delivery and was placed on maternal abdoemn. The cord was cut and clamped after it stopped pulsating, approximately 7 minutes after delivery. The placenta delivered with gentle cord traction, and appeared complete at 10:25. The perineum and vagina were inspected with a shallow 1st degree perineal laceration which was hemostatic and not repaired. Pt declined pitocin after delivery. She was resistant to fundal massage. Bleeding approached 1000mL, despite discussion about PPH dx and potential risks pt declined any furthe intervention. Bleeding eventually slowed. On PPD 1 she declined blood draw for CBC to f/up on Hgb level. She denies sx of anemia but BP slightly hypotensive. Despite discussion about the risks of this, she declines further work up, intervention or treatment. She is well. Notes that bleeding has slowed. Peripartum Data Infant Delivery Method: Natural Vaginal Laceration Description: Perineal - 1st Degree complications: other ( hemorrhage - pt refused PPH medications and f/up CBC. Allowed only intermittent fundal massage - PPH suspected to be 2/2 poor tone but difficulty to discern withotu exam ) Time Spent with Patient Time attestation: Total time spent providing and/or coordinating discharge services: Time spent: Less than 30 minutes Objective Labs 01/13/25 10:01 Labs: Laboratory Results - last 24 hr 01/13/25 10:01 Blood Type A Positive Antibody Screen Negative Exam Narrative Exam Narrative: GEn: well appearing Skin: well perfused MSK: scan edema Discharge Plan Discharge Plan Patient Disposition: Home Discharge orders & Medications Prescriptions: No Action No Known Home Medications Follow up/Referrals: Irene Nye MD [Physician] - (Follow up appt. with on February 25 at 11:30 am. ) Visit Report/Discharge Packet Stand Alone Forms: Patient Portal/API, Stroke Signs & Symptoms Discharge Data Primary Care Provider: Jasvir Quiroz Discharges patient from system. Discharge Date/Time: 01/14/25 01:50
[2025-01-14 14:17] VITALS: BP 136/75; PULSE 69; TEMP 2.4; TEMP 36.3
== END 2025-01-14 01:50 | disposition home or self-care (01) | DRG 807 ==
PROVIDERS: Admitting Provider Family Medicine; PCP Family Medicine; Visit Provider Family Medicine
DX: O99.284 Endocrine, nutritional and metabolic diseases complicating childbirth (principal); Z37.0 Single live birth; E06.9 Thyroiditis, unspecified; Z3A.40 40 weeks gestation of pregnancy; O72.0 Third-stage hemorrhage; O26.53 Maternal hypotension syndrome, third trimester
CPT/HCPCS: 36415; 59050; 59400; 85025; 86850; 86900; 86901; G0379